=== PATIENT | male | born 1985 | race African-American/Black ===

== ENCOUNTER 2017-05-16 23:11 | Emergency (ER) | payer OTHER ==
[~2017-05-16] VITALS: Ht 182.9 cm; Wt 94.3 kg
[2017-05-16 23:25] VITALS: BP 148/72
[2017-05-16 23:35] VITALS: BP 148/72
--- NOTE | 2017-05-17 03:00 | Emergency Room Report ---
History of Present Illness General Chief Complaint: General Complaint Source: Patient Present Illness HPI Patient 32-year-old male who presented after having foreign body to his left hand. 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 Patient stated that a glass was broken near his hand and subsequently he had some foreign material on the skin. This was removed by coworker. Patient had recent tetanus vaccine. He denied any pain at this time. Allergies: Coded Allergies: No Known Allergies (Unverified , 05/16/17) Patient History Past Medical History: see triage record Reviewed Nursing Documentation: PMH: Agreed, PSxH: Agreed Nursing Documentation-PMH Past Medical History: No Stated History Review of Systems All Other Systems: negative except mentioned in HPI Physical Exam Vital Signs Date Time Temp Pulse Resp B/P (MAP) Pulse Ox O2 Delivery O2 Flow Rate FiO2 05/16/17 23:14 98.1 72 18 148/72 98 Room Air General Appearance: well appearing, no apparent distress, alert, GCS 15 Head: normocephalic, atraumatic ENT: hearing grossly normal, normal voice Neck: full range of motion, supple Respiratory: no respiratory distress, speaking full sentences Cardiovascular #1: normal inspection Musculoskeletal: normal inspection, back normal, no calf tenderness Neurologic: normal inspection, alert, oriented x3, responsive, normal gait Psychiatric: mood/affect normal Skin: normal inspection, normal color, no rash Medical Decision Making Diagnostic Impression: Primary Impression: Foreign body hand ER Course The patient presented for hand pain. Differential diagnoses included was not limited to foreign body, laceration, abrasion among others. Patient's benign exam and does not appear to require any further imaging or laboratory testing at this time. The patient has no evidence of current foreign body however there may be small fragments of glass that were not visualized. The patient was advised to followup as needed with his primary care physician. The patient was cleared to go back to work. Patient tetanus is currently up to date. Last Vital Signs Date Time Temp Pulse Resp B/P (MAP) Pulse Ox O2 Delivery O2 Flow Rate FiO2 05/16/17 23:35 98.1 18 148/72 98 Room Air 05/16/17 23:14 72 Status: improved Disposition: HOME, SELF-CARE Condition: Stable Referrals: NOT CHOSEN IPA/MD,REFERRING (PCP) Patient Instructions: Guanako Johnson May 17, 2017 03:00
== END 2017-05-16 23:35 | disposition home or self-care (01) ==
LOC: EMR 23:25
DX: S60.552A Superficial foreign body of left hand, initial encounter (principal); X58.XXXA Exposure to other specified factors, initial encounter; Y92.512 Supermarket, store or market as the place of occurrence of the external cause; Y99.0 Civilian activity done for income or pay
CPT/HCPCS: 99282